=== PATIENT | male | born 1940 | race Caucasian/White ===

== ENCOUNTER → 2017-11-08 | Outpatient (CLI) | payer OTHER ==
[~2017-11-08] MED LIST: IOPAMIDOL (ISOVUE-300) 150 ML BTL ONE
== END ==
LOC: FIMAGING 10:24
PROVIDERS: ATTEND Specialist
DX: N40.1 Benign prostatic hyperplasia with lower urinary tract symptoms (principal); R91.8 Other nonspecific abnormal finding of lung field; J98.4 Other disorders of lung; M51.36 Other intervertebral disc degeneration, lumbar region
CPT/HCPCS: 82565-PO; Q9967

== ENCOUNTER 2018-01-31 13:07 | Day surgery (SDC) | payer OTHER ==
[~2018-01-31 13:07] MED LIST changes: +ACETAMINOPHEN 325 MG TAB PO PRN; +ASPIRIN EC 325 MG TAB PO ONE; +DIAZEPAM 5 MG TAB PO ONE; +FAMOTIDINE 20 MG TAB PO ONE; -IOPAMIDOL (ISOVUE-300) 150 ML BTL ONE; +NITROGLYCERIN 0.4 MG BTL SL PRN; +NS 1,000 ML IV SCH; +TEMAZEPAM 15 MG CAP PO PRN; +diphenhydrAMINE 25 MG CAP PO ONE
[2018-01-31 13:51] LABS: PLATELET COUNT 239 10^3/uL (150-400)
[2018-01-31 14:30] LABS: INR 0.95 (0.83-1.16); PROTIME(PATIENT) 12.9 SEC (12.0-15.0)
[2018-01-31] MEDS ORDERED: LIDOCAINE 1% 300 MG/30 ML SDV ONE (14:33)
[2018-01-31] MEDS ORDERED: fentaNYL 100 MCG/2 ML INJ ONE (14:34)
[2018-01-31] MEDS ORDERED: VERAPAMIL 5 MG/2 ML VIAL ONE (14:34)
[2018-01-31] MEDS ORDERED: IOPAMIDOL (ISOVUE-370) 150 ML BTL IV ONE (14:34)
[2018-01-31] MEDS ORDERED: HEPARIN 10,000 UNIT/10 ML MDV (1,000 UNIT/ML) ONE (14:34)
[2018-01-31] MEDS ORDERED: MIDAZOLAM 2 MG/2 ML VIAL ONE (14:34)
--- NOTE | 2018-01-31 15:18 | PDHPUP ---
History & Physical Update H&P update statement: This history and physical update is based on an assessment of the patient which was completed after admission or registration (within 24 hours), but prior to the surgery/procedure. H&P update: H&P reviewed & patient examined, no change in patient's condition since H&P completed (S[place] test on right wrist normal at less than 5 sec.)
--- NOTE | 2018-01-31 15:19 | PDPROPOC ---
Sedation Plan of Care Sedation Plan of Care: vital signs stable, mental status noted, patient educated of risks, benefits, alternatives, patient can tolerate sedation ASA Classification: ASA 2 Planned drugs: fentanyl, midazolam Mallampati Score: Class 2 Mallampati Reference Image: Patient passed 3-3-2 rule?: Yes
[2018-01-31] MEDS ORDERED: HYDROCODONE/APAP 5/325 TAB PO PRN (15:45)
[2018-01-31] MEDS ORDERED: ONDANSETRON 4 MG/2 ML VIAL IVP PRN (15:45)
[2018-01-31] MEDS ORDERED: ATROPINE SULFATE 1 MG/10 ML SYR IVP PRN (15:45)
--- NOTE | 2018-01-31 15:54 | PDDXCAT ---
Diagnostic Cath Note - . Date: 01/31/18 Bilingual Social Worker: Porfirio Indication: other (Abnormal stress test) - Procedure Access: right wrist Procedure: left heart catheterization, coronary angiography, left ventriculogram - Materials Left Heart Cath size: 5F Left Heart Cath materials: pigtail, other (Tig) - Findings-Left Heart Catheterization LM: Angiographically normal. LAD: Trace area of plaque in the mid-LAD just past the origin of 2nd diagonal branch; other martinez angiographically normal. LCX: Angiographically normal. RCA: Angiographically normal. EDP: 14 mmHg LVEF: 70% Wall motion: Normal Complications: None Estimated blood loss: <50ml Closure method: TR Band Assessment: 1) Minimal, early atherosclerosis in the mid-LAD. 2) Normal LV systolic function. Patient Problems: Problems Problem Status Onset Aortic valve regurgitation Active Osteoarthritis of left hip Acute Primary osteoarthritis of right hip Acute
--- NOTE | 2018-02-01 09:16 | CPEKG ---
Test Reason : OPEN Blood Pressure : / mmHG Vent. Rate : 068 BPM Atrial Rate : 068 BPM P-R Int : 253 ms QRS Dur : 092 ms QT Int : 386 ms P-R-T Axes : 049 011 024 degrees QTc Int : 411 ms Sinus rhythm Prolonged AK interval Probable left atrial enlargement Abnormal R-wave progression, early transition Confirmed by Kevin Martinez ([id number] on 02/01/2018 9:15:39 AM Referred By: Confirmed By:Kevin Martinez
== END 2018-01-31 18:21 | disposition home or self-care (01) ==
LOC: FCATH 13:07
PROVIDERS: ATTEND Internal Medicine Interventional Cardiology
PROC: B2111ZZ Fluoroscopy of Multiple Coronary Arteries using Low Osmolar Contrast (ICD-10-PCS; principal; 2018-01-31)
PROC: B2151ZZ Fluoroscopy of Left Heart using Low Osmolar Contrast (ICD-10-PCS; principal; 2018-01-31)
PROC: 4A023N7 Measurement of Cardiac Sampling and Pressure, Left Heart, Percutaneous Approach (ICD-10-PCS; principal; 2018-01-31)
DX: I35.2 Nonrheumatic aortic (valve) stenosis with insufficiency (principal); I10 Essential (primary) hypertension; N40.0 Benign prostatic hyperplasia without lower urinary tract symptoms
CPT/HCPCS: 93005; 93458; C1769; J1644; J2250; J3010; Q9967